=== PATIENT | female | born 1970 | race Hispanic/Latino ===

== ENCOUNTER 2018-01-18 14:59 | Emergency (ER) | payer OTHER ==
[~2018-01-18] VITALS: Ht 157.5 cm; Wt 63.5 kg
--- NOTE | 2018-01-18 15:07 | ED UPPER/LOWER EXTREMITY COMPL ---
History of Present Illness General Chief Complaint: Suture Removal/Wound Recheck Stated Complaint: STITCHES REMOVAL? Source: patient Exam Limitations: no limitations Vital Signs & Intake/Output Vital Signs & Intake/Output Vital Signs Date Time Temp Pulse Resp B/P B/P Pulse O2 O2 Flow FiO2 Mean Ox Delivery Rate 01/18 1515 97.7 58 18 126/73 98 Room Air Allergies Coded Allergies: No Known Allergies (01/09/18) Triage Nurses Notes Reviewed? yes Onset: Abrupt Duration: better Timing: recent history Severity: mild Severity Numbers: 1 HPI: Patient is a 47-year-old female who presents emergency room with requests of wound recheck and suture removal which patient had #4 sutures placed on January 09 TO LEFT THUMB and which patient states the wound is well-healing denies any fever or discharge or redness swelling or pain. (Tima Biswas) Past History Travel History Traveled to [place] past 21 day No Medical History Any Pertinent Medical History? none Neurological: NONE EENT: NONE Cardiovascular: NONE Respiratory: NONE Gastrointestinal: NONE Hepatic: NONE Renal: NONE Musculoskeletal: NONE Psychiatric: NONE Endocrine: NONE Surgical History Surgical History: non-contributory Psychosocial History What is your primary language Monegasque Family History Hx Contributory? No (Tima Biswas) Review of Systems Review of Systems Constitutional: Reports: no symptoms. EENTM: Reports: no symptoms. Respiratory: Reports: no symptoms. Cardiovascular: Reports: no symptoms. Gastrointestinal/Abdominal: Reports: no symptoms. Genitourinary: Reports: no symptoms. Musculoskeletal: Reports: see HPI. Skin: Reports: see HPI. Neurological/Psychological: Reports: no symptoms. Hematologic/Endocrine: Reports: no symptoms. Immunological: Reports: no symptoms. All Other Systems: Reviewed and Negative (Tima Biswas) Physical Exam Physical Exam General Appearance: no apparent distress, alert, comfortable Head: atraumatic Eyes: Bilateral: normal appearance. Ears, Nose, Throat: hearing grossly normal Cardiovascular/Respiratory: no respiratory distress Peripheral Pulses: 2+ radial (L) Neurologic/Tendon: normal sensation, normal motor functions, normal tendon functions, responds to pain, no evidence tendon injury, no pulse deficit Skin: intact, normal color, warm/dry Diagram Hands Front 1) Well healing 1.5 cm laceration with #4 intact sutures Full active range of motion dermatomes intact (Tima Biswas) Progress Differential Diagnosis: arterial insufficiency, contusion, dislocation, DVT, fracture, gout, septic arthritis, sprain, tendon injury Plan of Care: The laceration site is well healing no signs of infection #4 sutures were removed without complications patient's bacitracin bandage was applied (Tima Biswas) Departure Departure Disposition: HOME OR SELF CARE Condition: Stable Clinical Impression Primary Impression: Visit for suture removal Secondary Impressions: Visit for wound check Referrals: Noy De Leon MD (PCP/Family) Additional Instructions: As discussed apply bacitracin with bandage one more time tomorrow then the area open to improve healing, if you note signs of infection or develop A new concerning symptom return to emergency room Departure Forms: Customer Survey General Discharge Information (Tima Biswas) PA/SPRAY PILOT Co-Sign Statement Statement: ED Attending supervision documentation- [] I saw and evaluated the patient. I have also reviewed all the pertinent lab results and diagnostic results. I agree with the findings and the plan of care as documented in the PA's/SPRAY PILOT's documentation. [X] I have reviewed the ED Record and agree with the PA's/SPRAY PILOT's documentation. [] Additions or exceptions (if any) to the PAs/SPRAY PILOT's note and plan are summarized below: [] (Joaquin More DO)
[2018-01-18 15:15] VITALS: BP 126/73
== END 2018-01-18 15:50 ==
LOC: ERH 14:59
DX: Z48.02 Encounter for removal of sutures (principal)